=== PATIENT | male | born 1960 | race Caucasian/White ===

== ENCOUNTER 2020-12-02 21:50 | Observation (INO) | payer SELFPAY ==
[2020-12-02] MEDS ORDERED: BABY ASPIRIN 81 MG CHEW PO ONE (22:02)
[2020-12-02] MEDS ORDERED: BABY ASPIRIN 81 MG CHEW ONE (22:06)
[2020-12-02 22:17] LABS: Absolute Neutrophil Ct (ANC) 6.44 (1.4-6.9); BASOPHIL % 0.5 % (0.0-0.4); Basophil (Absolute #) 0.05 (0-0.4); Eosinophil % 1.1 % (0.00-5.0); Hematocrit 41.5 % (42-50); Lymphocyte (Absolute #) 2.01 (1.0-4.6); Lymphocytes % 21.6 % (24.0-44.0); Mean Cell Volume 88.1 fl (78-100); Mean Corpuscular Hemoglobin 29.7 pg (26-32); Mean Corpuscular Hgb Concent. 33.7 g/dl (32-36); Mean Platelet Volume 10.7 fl (7.5-11.0); Monocyte (Absolute #) 0.72 (0.0-1.3); Monocytes % 7.7 % (0.0-12.0); Neutrophil % 69.1 % (36.0-66.0); Platelet Count 274 K/mm3 (150-450); Red Blood Count 4.71 M/mm3 (4.1-5.6); Red Cell Distribution Width 12.5 % (11.5-14.0); White Blood Count 9.3 K/mm3 (4.0-10.5)
[2020-12-02 22:38] LABS: ALBUMIN 4.3 g/dL (3.5-5.0); ALKALINE PHOSPHATASE 71 U/L (38-126); ANION GAP 10.2 MEQ/L (5-15); BLOOD UREA NITROGEN 5 mg/dL (9-20); CHLORIDE 93 mmol/L (98-107); Calcium 9.6 mg/dL (8.4-10.2); Carbon Dioxide 30 mmol/L (22-30); Creatinine 1 0.59 mg/dL (0.66-1.25); EST GLOMERULAR FILTRATION RATE > 60.0 ML/MIN; Glucose 107 mg/dL (74-106); NT PRO BNP 44.4 pg/mL (0-900); Potassium 3.8 mmol/L (3.5-5.1); SGOT/AST 14 U/L (17-59); SGPT/ALT 10 U/L (0-50); SODIUM 129 mmol/L (137-145)
--- NOTE | 2020-12-02 22:47 | ERPHSYRPT ---
- History of Present Illness Time Seen by Provider: 12/02/20 22:19 Historian: patient Exam Limitations: no limitations Patient Subjective Stated Complaint: The patient states that he started feeling unwell with abdominal and some chest discomfort since Monday of last week and had a covid test on 11/26/20 which has since come back negative. The patient is having intermittent sharp chest pains and is just worried about it being something wrong with his heart. Triage Nursing Assessment: The patient is alert and oriented, pink, warm and dry; heart rate regular and breath sounds normal. No edema was noted. The patient rates his chest pain as intermittent and a 5/6 on a scale of 10. Physician History: 60 years old male with history of tobacco abuse presented in the ER with 2 weeks history of intermittent substernal/left-sided chest pain dull aching mild to moderate without any significant aggravating relieving factors. Denies any associated palpitations shortness of breath. Denies any fever chills or cough. Denies any history of CAD or cardiac work-up in the past Timing/Duration: week(s) (2), intermittent, gradual onset, worse Activities at Onset: rest Quality: aching, dullness Location: substernal Chest Pain Radiation: no radiation Severity of Pain-Max: moderate Severity of Pain-Current: mild Modifying Factors: Improves With: nothing Associated Symptoms: denies symptoms Allergies/Adverse Reactions: No Known Drug Allergies Allergy (Unverified 12/02/20 22:23) Home Medications: No Reportable Medications [No Reported Medications] 12/02/20 [History] Hx Tetanus, Diphtheria Vaccination/Date Given: No Hx Influenza Vaccination/Date Given: No Hx Pneumococcal Vaccination/Date Given: No Immunizations Up to Date: Yes Travel Risk - International Travel Have you traveled outside of the country in past 3 weeks: No - Coronavirus Screening Are you exhibiting any of the following symptoms?: No Close contact with a COVID-19 positive Pt in past 14-21 Days: No - Review of Systems Constitutional: No Symptoms Eyes: No Symptoms Ears, Nose, & Throat: No Symptoms Respiratory: No Symptoms Cardiac: Chest Pain Abdominal/Gastrointestinal: No Symptoms Genitourinary Symptoms: No Symptoms Musculoskeletal: No Symptoms Skin: No Symptoms Neurological: No Symptoms Psychological: No Symptoms Endocrine: No Symptoms Hematologic/Lymphatic: No Symptoms Immunological/Allergic: No Symptoms - Past Medical History Pertinent Past Medical History: No Neurological History: No Pertinent History ENT History: No Pertinent History Cardiac History: No Pertinent History Respiratory History: No Pertinent History Endocrine Medical History: No Pertinent History Musculoskeletal History: No Pertinent History GI Medical History: No Pertinent History History: No Pertinent History Psycho-Social History: No Pertinent History Male Reproductive Disorders: No Pertinent History Other Medical History: Vitamin deficiency - Past Surgical History Past Surgical History: Yes Neuro Surgical History: No Pertinent History Cardiac: No Pertinent History Respiratory: No Pertinent History Gastrointestinal: No Pertinent History Genitourinary: No Pertinent History Musculoskeletal: Orthopedic Surgery, Other Male Surgical History: No Pertinent History Other Surgical History: Ligarment graft in 2008, L4 and L5 in 2006 - Social History Smoking Status: Current every day smoker How long have you smoked: 45 years Exposure to second hand smoke: No Drug Use: marijuana Patient Lives Alone: Yes - Nursing Vital Signs Nursing Vital Signs: Initial Vital Signs Temperature 97.8 F 12/02/20 21:52 Pulse Rate 79 12/02/20 21:52 Respiratory Rate 14 12/02/20 21:52 Blood Pressure 164/94 12/02/20 21:52 O2 Sat by Pulse Oximetry 99 12/02/20 21:52 Pain Scale Pain Intensity 5 - Physical Exam General Appearance: no apparent distress, alert Eye Exam: PERRL/EOMI, eyes nml inspection Ears, Nose, Throat Exam: normal ENT inspection, pharynx normal Neck Exam: normal inspection, non-tender, supple, full range of motion Respiratory Exam: normal breath sounds, lungs clear Cardiovascular Exam: regular rate/rhythm, normal heart sounds Gastrointestinal/Abdomen Exam: soft, normal bowel sounds, No tenderness Back Exam: normal inspection, normal range of motion Extremity Exam: normal inspection, normal range of motion Neurologic Exam: alert, oriented x 3, cooperative Skin Exam: normal color SpO2 Interpretation: normal SpO2: 99 O2 Delivery: Room Air - Course EKG Interpreted by Me: RATE, Sinus Rhythm, NORMAL AXIS, NORMAL INTERVALS, NORMAL QRS Ordered Tests: Active Orders 24 hr Category Date Time Status Bedrest with BRP/BSC ROUTINE Activity 12/02/20 23:29 Active Paint Stockman STAT Care 12/02/20 22:03 Completed Code Status Order ROUTINE Care 12/02/20 23:29 Active EKG-ER Only STAT Care 12/02/20 22:02 Completed IV Care Q6H Care 12/02/20 23:29 Active IV Insertion STAT Care 12/02/20 22:[address] in Observation ROUTINE Care 12/02/20 23:29 Active Andrzej ParedesLayne ROUTINE Care 12/02/20 23:29 Active Weight,Daily 0600 Care 12/02/20 23:29 Active Heart-Healthy Diet Diet 12/02/20 Breakfast Active CHEST 1 VIEW (PORTABLE) Stat Exams 12/02/20 22:02 Taken BMP AM.LAB Lab 12/03/20 04:00 Ordered CBC W DIFF AM.LAB Lab 12/03/20 04:00 Ordered CBC W DIFF Stat Lab 12/02/20 22:00 Completed CMP Stat Lab 12/02/20 22:00 Completed D-DIMER QUANTITATIVE Stat Lab 12/02/20 22:00 Completed NT PRO BNP Stat Lab 12/02/20 22:00 Completed TROPONIN Q3H Lab 12/02/20 22:00 Completed TROPONIN Q3H Lab 12/03/20 01:15 Ordered TROPONIN Q3H Lab 12/03/20 04:15 Ordered TROPONIN Q3H Lab 12/03/20 07:15 Ordered TROPONIN Q3H Lab 12/03/20 10:15 Ordered Transfer Order Routine Transfer 12/02/20 Completed Medication Summary Generic Name Dose Route Start Last Admin Trade Name Freq PRN Reason Stop Dose Admin Acetaminophen 650 mg 12/02/20 23:29 Tylenol 325 Mg PO 01/01/21 23:28 Q4H PRN PRN PAIN AND/OR FEVER Albuterol/Ipratropium 3 ml 12/02/20 23:29 Duoneb 0.5-3 Mg/3 Ml Neb IH 01/01/21 23:28 Q4HPRN PRN SHORTNESS OF BREATH/WHEEZING Sodium Chloride 1,000 mls @ 100 mls/hr 12/02/20 23:29 Sodium Chloride 0.9% 1000 Ml IV 01/01/21 23:28 .Q10H ROSA Morphine Sulfate 4 mg 12/02/20 23:29 Morphine Sulfate 4 Mg Inj IV 12/07/20 23:28 Q4H PRN PRN PAIN Ondansetron HCl 4 mg 12/02/20 23:29 Zofran 4 Mg/2 Ml Vial IV 01/01/21 23:28 Q6H PRN PRN NAUSEA/VOMITING Pantoprazole Sodium 40 mg 12/03/20 10:00 Protonix 40 Mg Iv IV 01/02/21 09:59 Q24H10 ROSA Discontinued Medications Generic Name Dose Route Start Last Admin Trade Name Autumn PRN Reason Stop Dose Admin Aspirin 324 mg 12/02/20 22:02 12/02/20 22:07 Baby Aspirin 81 Mg Chew PO 12/02/20 22:03 324 mg STAT ONE Administration Aspirin Confirm 12/02/20 22:06 Baby Aspirin 81 Mg Chew Administered 12/02/20 22:07 Dose 324 mg .ROUTE .STK-MED ONE Sodium Chloride 1,000 mls @ 100 mls/hr 12/02/20 23:00 12/02/20 22:57 Sodium Chloride 0.9% 1000 Ml IV 01/01/21 22:59 100 mls/hr .Q10H ROSA Administration Sodium Chloride Confirm 12/02/20 22:54 Sodium Chloride 0.9% 1000 Ml Administered 12/02/20 22:55 Dose 1,000 mls @ ud .ROUTE .STK-MED ONE Lab/Rad Data: Laboratory Result Diagrams 12/02/20 22:00 12/02/20 22:00 Laboratory Results 12/02/20 12/02/20 12/02/20 Range/Units 22:00 22:00 22:00 WBC (4.0-10.5) K/mm3 RBC (4.1-5.6) M/mm3 Hgb (12.5-18.0) gm/dl Hct (42-50) % MCV (78-100) fl MCH (26-32) pg MCHC (32-36) g/dl RDW (11.5-14.0) % Plt Count (150-450) K/mm3 MPV (7.5-11.0) fl Gran % (36.0-66.0) % Eos # (Auto) (0-0.5) Absolute Lymphs (auto) (1.0-4.6) Absolute Monos (auto) (0.0-1.3) Lymphocytes % (24.0-44.0) % Monocytes % (0.0-12.0) % Eosinophils % (0.00-5.0) % Basophils % (0.0-0.4) % Absolute Granulocytes (1.4-6.9) Basophils # (0-0.4) D-Dimer < 215 L (215-500) ng/mL Sodium 129 L (137-145) mmol/L Potassium 3.8 (3.5-5.1) mmol/L Chloride 93 L (98-107) mmol/L Carbon Dioxide 30 (22-30) mmol/L Anion Gap 10.2 (5-15) MEQ/L BUN 5 L (9-20) mg/dL Creatinine 0.59 L (0.66-1.25) mg/dL Estimated GFR > 60.0 ML/MIN Glucose 107 H (74-106) mg/dL Calcium 9.6 (8.4-10.2) mg/dL Total Bilirubin 0.90 (0.2-1.3) mg/dL AST 14 L (17-59) U/L ALT 10 (0-50) U/L Alkaline Phosphatase 71 (38-126) U/L Troponin I < 0.012 (0.000-0.034) ng/mL NT-Pro-B Natriuret Pep 44.4 (0-900) pg/mL Serum Total Protein 7.0 (6.3-8.2) g/dL Albumin 4.3 (3.5-5.0) g/dL 12/02/20 Range/Units 22:00 WBC 9.3 (4.0-10.5) K/mm3 RBC 4.71 (4.1-5.6) M/mm3 Hgb 14.0 (12.5-18.0) gm/dl Hct 41.5 L (42-50) % MCV 88.1 (78-100) fl MCH 29.7 (26-32) pg MCHC 33.7 (32-36) g/dl RDW 12.5 (11.5-14.0) % Plt Count 274 (150-450) K/mm3 MPV 10.7 (7.5-11.0) fl Gran % 69.1 H (36.0-66.0) % Eos # (Auto) 0.10 (0-0.5) Absolute Lymphs (auto) 2.01 (1.0-4.6) Absolute Monos (auto) 0.72 (0.0-1.3) Lymphocytes % 21.6 L (24.0-44.0) % Monocytes % 7.7 (0.0-12.0) % Eosinophils % 1.1 (0.00-5.0) % Basophils % 0.5 (0.0-0.4) % Absolute Granulocytes 6.44 (1.4-6.9) Basophils # 0.05 (0-0.4) D-Dimer (215-500) ng/mL Sodium (137-145) mmol/L Potassium (3.5-5.1) mmol/L Chloride (98-107) mmol/L Carbon Dioxide (22-30) mmol/L Anion Gap (5-15) MEQ/L BUN (9-20) mg/dL Creatinine (0.66-1.25) mg/dL Estimated GFR ML/MIN Glucose (74-106) mg/dL Calcium (8.4-10.2) mg/dL Total Bilirubin (0.2-1.3) mg/dL AST (17-59) U/L ALT (0-50) U/L Alkaline Phosphatase (38-126) U/L Troponin I (0.000-0.034) ng/mL NT-Pro-B Natriuret Pep (0-900) pg/mL Serum Total Protein (6.3-8.2) g/dL Albumin (3.5-5.0) g/dL - Progress Progress: improved Air Movement: good Progress Note: 12/02/20 23:05 60 years old is evaluated for intermittent chest pain for 2 weeks. EKG did not show any acute ST elevations. Negative initial troponin and D-dimer. Chest x- ray negative for any acute cardiopulmonary findings. Patient is given aspirin and is feeling better. Does not want anything else for pain. Patient does not have any cardiac work-up done in the past. Patient would benefit with serial troponin and echo/stress test. Also has mild hyponatremia 129 and is started on normal saline and will recheck later. Discussed with Dr. Bang and patient is being admitted for observation. 12/02/20 23:06 Blood Culture(s) Obtained: No Antibiotics given: No Discussed with : Radha Will see patient in: hospital (observation) Counseled pt/family regarding: lab results, diagnosis, rad results - Departure Departure Disposition: Observation Clinical Impression: Chest pain, rule out acute myocardial infarction, Hyponatremia Condition: Stable Critical Care Time: No
[2020-12-02] MEDS ORDERED: Sodium Chloride 0.9% 1000 ML 1,000 ML ONE (22:54)
[2020-12-02] MEDS ORDERED: Sodium Chloride 0.9% 1000 ML 1,000 ML IV SCH ×2 (23:00→23:29)
[2020-12-02] MEDS ORDERED: MORPHINE SULFATE 4 MG INJ IV PRN (23:29)
[2020-12-02] MEDS ORDERED: DUONEB 0.5-3 MG/3 ml Neb IH PRN (23:29)
[2020-12-02] MEDS ORDERED: Zofran 4 MG/2 ML VIAL IV PRN (23:29)
[2020-12-02] MEDS ORDERED: TYLENOL 325 MG PO PRN (23:29)
[2020-12-03 01:10] VITALS: O2SAT 97
[2020-12-03 05:30] LABS: BLOOD UREA NITROGEN 5 mg/dL (9-20); CHLORIDE 96 mmol/L (98-107); Calcium 9.5 mg/dL (8.4-10.2); Carbon Dioxide 31 mmol/L (22-30); Creatinine 1 0.58 mg/dL (0.66-1.25); EST GLOMERULAR FILTRATION RATE > 60.0 ML/MIN; Glucose 123 mg/dL (74-106); Potassium 4.2 mmol/L (3.5-5.1); SODIUM 132 mmol/L (137-145)
[2020-12-03 05:33] LABS: Absolute Neutrophil Ct (ANC) 4.84 (1.4-6.9); BASOPHIL % 0.4 % (0.0-0.4); Basophil (Absolute #) 0.03 (0-0.4); Eosinophil % 1.5 % (0.00-5.0); Eosinophil (Absolute #) 0.11 (0-0.5); Hematocrit 41.6 % (42-50); Hemoglobin 13.9 gm/dl (12.5-18.0); Lymphocyte (Absolute #) 1.82 (1.0-4.6); Lymphocytes % 24.3 % (24.0-44.0); Mean Cell Volume 88.9 fl (78-100); Mean Corpuscular Hemoglobin 29.7 pg (26-32); Mean Corpuscular Hgb Concent. 33.4 g/dl (32-36); Mean Platelet Volume 11.4 fl (7.5-11.0); Monocyte (Absolute #) 0.69 (0.0-1.3); Monocytes % 9.2 % (0.0-12.0); Neutrophil % 64.6 % (36.0-66.0); Platelet Count 275 K/mm3 (150-450); Red Blood Count 4.68 M/mm3 (4.1-5.6); Red Cell Distribution Width 12.6 % (11.5-14.0); White Blood Count 7.5 K/mm3 (4.0-10.5)
[2020-12-03 07:35] VITALS: BP 149/85; PULSE 60
--- NOTE | 2020-12-03 08:25 | PCM.HP ---
History of Present Illness - Chief Complaint Chief Complaint: r/o mi History of Present Illness: is a 60 year old male with no local physician, he came to the ER with a 2-3 week history of intermittent left sided chest pain, it has been progressively lasting longer up to 1-2 minutes, dull in nature. no diaphoresis, he does have some cough and is a longtime smoker, recently trying to cut back, has some clear sputum chronically from smoking cough. He also has decreased appetite with intermittent abdominal pain for the last several months, pain in left upper and periumbilical, he admits to not eating much or having much appetite, has never had a colonoscopy, no workup for heart or abdominal pain previously. - Review of Systems Constitutional: No Fever, No Chills Respiratory: No Cough, No Short Of Breath Cardiac: Chest Pain Abdominal/Gastrointestinal: Abdominal Pain, No Nausea, No Vomiting, No Diarrhea, No Constipation, No Hematochezia Genitourinary Symptoms: No Dysuria Skin: No Rash Neurological: No Symptoms All Other Systems: Reviewed and Negative Medications & Allergies Home Medications: Home Medication List No Reportable Medications [No Reported Medications] 12/02/20 [History Confirmed 12/02/20] Allergies/Adverse Reactions: Allergies Allergy/AdvReac Type Severity Reaction Status Date / Time No Known Drug Allergies Allergy Unverified 12/02/20 22:23 - Past Medical History Past Medical History: No Neurological History: No Pertinent History ENT History: No Pertinent History Cardiac History: No Pertinent History Respiratory History: No Pertinent History Endocrine Medical History: No Pertinent History Musculoskelatal History: No Pertinent History GI Medical History: No Pertinent History History: No Pertinent History Pyscho-Social History: No Pertinent History Male Reproductive Disorders: No Pertinent History Comment: Vitamin deficiency - Past Surgical History Past Surgical History: Yes Neuro Surgical History: No Pertinent History Cardiac History: No Pertinent History Respiratory Surgery: No Pertinent History GI Surgical History: No Pertinent History Genitourinary Surgical Hx: No Pertinent History Musculskeletal Surgical Hx: Orthopedic Surgery, Other Male Surgical History: No Pertinent History Other Surgical History: Ligarment graft in 2007, L4 and L5 in 2006 - Social History Smoking Status: Current every day smoker How long have you smoked: 45 Exposure to second hand smoke: No Alcohol: None Drug Use: marijuana - Physical Exam Vital Signs: Vital Signs - 24 hr Temp Pulse Pulse Resp BP Pulse Ox 12/03/20 07:34 98.2 F 60 16 149/85 97 12/03/20 04:00 97.9 F 73 18 143/87 97 12/03/20 00:39 97.4 F 63 18 157/77 97 12/02/20 23:41 99 12/02/20 21:55 73 12/02/20 21:52 97.8 F 79 14 164/94 99 General Appearance: no apparent distress, thin Neurologic Exam: alert, oriented x 3, cooperative Respiratory Exam: normal breath sounds, lungs clear, diminished breath sounds, prolonged expirations, No respiratory distress Cardiovascular Exam: regular rate/rhythm, normal heart sounds, normal peripheral pulses Gastrointestinal/Abdomen Exam: soft, No distention, No guarding, No rebound Extremity Exam: normal inspection, normal range of motion, pelvis stable Skin Exam: normal color Results - Labs Lab/Micro Results: Lab Results-Last 24 Hours 12/02/20 12/02/20 12/02/20 Range/Units 22:00 22:00 22:00 WBC 9.3 (4.0-10.5) K/mm3 RBC 4.71 (4.1-5.6) M/mm3 Hgb 14.0 (12.5-18.0) gm/dl Hct 41.5 L (42-50) % MCV 88.1 (78-100) fl MCH 29.7 (26-32) pg MCHC 33.7 (32-36) g/dl RDW 12.5 (11.5-14.0) % Plt Count 274 (150-450) K/mm3 MPV 10.7 (7.5-11.0) fl Gran % 69.1 H (36.0-66.0) % Eos # (Auto) 0.10 (0-0.5) Absolute Lymphs (auto) 2.01 (1.0-4.6) Absolute Monos (auto) 0.72 (0.0-1.3) Lymphocytes % 21.6 L (24.0-44.0) % Monocytes % 7.7 (0.0-12.0) % Eosinophils % 1.1 (0.00-5.0) % Basophils % 0.5 (0.0-0.4) % Absolute Granulocytes 6.44 (1.4-6.9) Basophils # 0.05 (0-0.4) D-Dimer < 215 L (215-500) ng/mL Sodium 129 L (137-145) mmol/L Potassium 3.8 (3.5-5.1) mmol/L Chloride 93 L (98-107) mmol/L Carbon Dioxide 30 (22-30) mmol/L Anion Gap 10.2 (5-15) MEQ/L BUN 5 L (9-20) mg/dL Creatinine 0.59 L (0.66-1.25) mg/dL Estimated GFR > 60.0 ML/MIN Glucose 107 H (74-106) mg/dL Calcium 9.6 (8.4-10.2) mg/dL Total Bilirubin 0.90 (0.2-1.3) mg/dL AST 14 L (17-59) U/L ALT 10 (0-50) U/L Alkaline Phosphatase 71 (38-126) U/L Troponin I (0.000-0.034) ng/mL NT-Pro-B Natriuret Pep 44.4 (0-900) pg/mL Serum Total Protein 7.0 (6.3-8.2) g/dL Albumin 4.3 (3.5-5.0) g/dL 12/02/20 12/03/20 12/03/20 Range/Units 22:00 01:45 04:45 WBC (4.0-10.5) K/mm3 RBC (4.1-5.6) M/mm3 Hgb (12.5-18.0) gm/dl Hct (42-50) % MCV (78-100) fl MCH (26-32) pg MCHC (32-36) g/dl RDW (11.5-14.0) % Plt Count (150-450) K/mm3 MPV (7.5-11.0) fl Gran % (36.0-66.0) % Eos # (Auto) (0-0.5) Absolute Lymphs (auto) (1.0-4.6) Absolute Monos (auto) (0.0-1.3) Lymphocytes % (24.0-44.0) % Monocytes % (0.0-12.0) % Eosinophils % (0.00-5.0) % Basophils % (0.0-0.4) % Absolute Granulocytes (1.4-6.9) Basophils # (0-0.4) D-Dimer (215-500) ng/mL Sodium (137-145) mmol/L Potassium (3.5-5.1) mmol/L Chloride (98-107) mmol/L Carbon Dioxide (22-30) mmol/L Anion Gap (5-15) MEQ/L BUN (9-20) mg/dL Creatinine (0.66-1.25) mg/dL Estimated GFR ML/MIN Glucose (74-106) mg/dL Calcium (8.4-10.2) mg/dL Total Bilirubin (0.2-1.3) mg/dL AST (17-59) U/L ALT (0-50) U/L Alkaline Phosphatase (38-126) U/L Troponin I < 0.012 < 0.012 < 0.012 (0.000-0.034) ng/mL NT-Pro-B Natriuret Pep (0-900) pg/mL Serum Total Protein (6.3-8.2) g/dL Albumin (3.5-5.0) g/dL 12/03/20 12/03/20 12/03/20 Range/Units 04:45 04:45 07:26 WBC 7.5 (4.0-10.5) K/mm3 RBC 4.68 (4.1-5.6) M/mm3 Hgb 13.9 (12.5-18.0) gm/dl Hct 41.6 L (42-50) % MCV 88.9 (78-100) fl MCH 29.7 (26-32) pg MCHC 33.4 (32-36) g/dl RDW 12.6 (11.5-14.0) % Plt Count 275 (150-450) K/mm3 MPV 11.4 H (7.5-11.0) fl Gran % 64.6 (36.0-66.0) % Eos # (Auto) 0.11 (0-0.5) Absolute Lymphs (auto) 1.82 (1.0-4.6) Absolute Monos (auto) 0.69 (0.0-1.3) Lymphocytes % 24.3 (24.0-44.0) % Monocytes % 9.2 (0.0-12.0) % Eosinophils % 1.5 (0.00-5.0) % Basophils % 0.4 (0.0-0.4) % Absolute Granulocytes 4.84 (1.4-6.9) Basophils # 0.03 (0-0.4) D-Dimer (215-500) ng/mL Sodium 132 L (137-145) mmol/L Potassium 4.2 (3.5-5.1) mmol/L Chloride 96 L (98-107) mmol/L Carbon Dioxide 31 H (22-30) mmol/L Anion Gap 9.0 (5-15) MEQ/L BUN 5 L (9-20) mg/dL Creatinine 0.58 L (0.66-1.25) mg/dL Estimated GFR > 60.0 ML/MIN Glucose 123 H (74-106) mg/dL Calcium 9.5 (8.4-10.2) mg/dL Total Bilirubin (0.2-1.3) mg/dL AST (17-59) U/L ALT (0-50) U/L Alkaline Phosphatase (38-126) U/L Troponin I < 0.012 (0.000-0.034) ng/mL NT-Pro-B Natriuret Pep (0-900) pg/mL Serum Total Protein (6.3-8.2) g/dL Albumin (3.5-5.0) g/dL - Radiology Impressions Radiology Exams & Impressions: Radiology Procedures Category Date Time Status ABDOMEN AND PELVIS W CONTRAST [CT] Stat Exams 12/03/20 08:18 Ordered CHEST 1 VIEW (PORTABLE) Stat Exams 12/02/20 22:02 Taken CHEST WITH CONTRAST [CT] Stat Exams 12/03/20 08:19 Ordered Assessment/Plan (1) Chest pain, rule out acute myocardial infarction Current Visit: Yes Status: Acute Assessment & Plan: serial troponins negative, nothing acute on ekg. concern with weight loss, abd pain and hyponatremia with chronic cough and smoking history. needs ct chest and abd/pel to r/o malignancy. if workup negative will plan for outpatient stress test after discharge Code(s): R07.9 - CHEST PAIN, UNSPECIFIED (2) Abdominal pain Current Visit: Yes Status: Acute Code(s): R10.9 - UNSPECIFIED ABDOMINAL PAIN (3) Hyponatremia Current Visit: Yes Status: Acute Assessment & Plan: mild, improved with fluids Code(s): E87.1 - HYPO-OSMOLALITY AND HYPONATREMIA
--- NOTE | 2020-12-03 08:36 | XRAY ---
Indication: Chest pain. Comparison: None Portable chest hyperinflated and clear. Heart is not enlarged. Bony thorax intact with mild degenerative changes and old right clavicle fracture. Impression: Nonacute hyperinflated chest.
--- NOTE | 2020-12-03 09:03 | PCM.DCORD ---
- Discharge Disposition: Home, Self-Care Condition: Stable Prescriptions: No Action No Reportable Medications [No Reported Medications] Additional Instructions: f/u in 2 weeks as discussed, return for persistent or severe pain or new problems or concerns. Follow up with: JODI LEONE MD [ACTIVE STAFF] - 2 weeks
[2020-12-03] MEDS ORDERED: PROTONIX 40 MG IV IV SCH (10:00)
== END 2020-12-03 10:30 | disposition home or self-care (01) ==
LOC: ED 21:50 → MED SURG 23:25
PROVIDERS: ADMIT Family Medicine; ATTEND Family Medicine
DX: R07.9 Chest pain, unspecified (principal); E87.1 Hypo-osmolality and hyponatremia; R10.9 Unspecified abdominal pain
CPT/HCPCS: 36000; 36415; 71045; 80048; 80053; 83880; 84484; 85025; 85379; 93005; 93041; 93268; 99285; G0378; A9270-GY

== ENCOUNTER 2021-01-13 06:31 | Day surgery (SDC) | payer OTHER ==
[~2021-01-13 06:31] MED LIST: Lactated Ringers 1,000 ML IV SCH
[2021-01-13] MEDS ORDERED: Xylocaine-Mpf 2% 5 Ml Vial ONE (07:47)
[2021-01-13] MEDS ORDERED: DIPRIVAN 200 MG/20 ML IV ONE (07:47)
--- NOTE | 2021-01-13 08:45 | OP ---
SURGERY DATE/TIME: 01/13/2021 0757 PREOPERATIVE DIAGNOSES: 1) Abdominal pain. 2) Weight loss. 3) Screening colon. POSTOPERATIVE DIAGNOSES: 1) Mild gastritis. 2) Normal colon. PROCEDURES: 1) EGD. 2) Colonoscopy. SURGEON: Nemesio Bang M.D. ANESTHESIA: MAC by Kyle Alvarado CRNA. ESTIMATED BLOOD LOSS: Minimal. SPECIMENS: There were two cold forceps biopsies taken from the gastric antrum and sent for Helicobacter pylori testing. DESCRIPTION OF PROCEDURE: After informed written consent was obtained, the patient was taken to the endoscopy suite. He had a bite block inserted and was placed in left lateral decubitus position. Anesthesia was titrated to desired level of consciousness. The endoscope was inserted in the posterior oropharynx. Under direct visualization the esophagus was easily traversed. It had normal appearance. Upon entering the stomach, there was a normal gastroesophageal junction and normal rugated gastric mucosa free of any lesions or defects. There was some old dried flakes of blood in the gastric antrum. No obvious areas of ulceration or active bleeding. Two small cold forceps biopsies were taken from the gastric antrum and sent for Helicobacter pylori testing. The pylorus was traversed and there were no obvious mucosal abnormalities in the duodenum. Upon withdrawal all mucosal structures again appeared unremarkable. The scope was removed and the scopes were switched. Digital rectal exam showed normal sphincter tone and no internal lesions. The scope was then inserted in the rectum and sequentially the entire colonic mucosa was traversed. The level of the cecum was reached and verified with direct visualization of the ileocecal valve. Upon withdrawal careful mucosal inspection revealed no gross abnormalities. Prep was noted to be fair. Prior to withdrawal retroflexion was performed and showed no internal lesions. The scope was removed and the patient was transferred to the recovery room in good condition. He has been advised to follow up in a week for pathology.
[2021-01-13 08:53] VITALS: O2SAT 98
[2021-01-13 09:14] VITALS: BP 140/87; PULSE 77
== END 2021-01-13 09:21 | disposition home or self-care (01) ==
LOC: SDC 06:31
PROVIDERS: ATTEND Family Medicine
DX: Z12.11 Encounter for screening for malignant neoplasm of colon (principal); K29.70 Gastritis, unspecified, without bleeding; R10.9 Unspecified abdominal pain; R63.4 Abnormal weight loss
CPT/HCPCS: 88305; J2704